=== PATIENT | female | born 1985 | race Caucasian/White ===

== ENCOUNTER 2018-03-13 13:19 | Inpatient (IN) | payer OTHER ==
[~2018-03-13] VITALS: Ht 162.6 cm; Wt 84.8 kg
[2018-03-13] VITALS (10 sets, daily range): BP systolic 116–164; BP diastolic 67–111
[2018-03-13] MEDS ORDERED: SEROQUEL 25 MG25 M1 PO (13:31)
[2018-03-13] MEDS ORDERED: QUETIAPINE FUM100 MG PO (13:32)
[2018-03-13] MEDS ORDERED: XANAX 0.25 MG0.25 MG PO (13:32)
[2018-03-13] MEDS ORDERED: HYDROCHLOROTH12.5 M1 PO (13:33)
[2018-03-13] MEDS ORDERED: REMERON15 MG PO (13:33)
[2018-03-13] MEDS ORDERED: LISINOPRIL10 MG PO (13:33)
[2018-03-13] MEDS ORDERED: DEXAMETHASONE1 MG PO (13:34)
[2018-03-13] MEDS ORDERED: NEURONTIN600 MG PO (13:35)
[2018-03-13] MEDS ORDERED: VITAMIN D250000 UNIT PO (13:35)
[2018-03-13] MEDS ORDERED: TOPAMAX 100 MG100 MG PO (13:35)
[2018-03-13] MEDS ORDERED: JOLIVETTE0.35 MG PO (13:36)
[2018-03-13 14:39] LABS: CALCIUM 8.6 mg/dL (8.5-10.1); CREATININE 1.2 mg/dL (0.6-1.3); POTASSIUM 4.6 mmol/L (3.5-5.1)
[2018-03-13 14:44] LABS: ALBUMIN 3.5 g/dL (3.4-5.0); TOTAL BILIRUBIN 0.8 mg/dL (<0.1-1.0)
[2018-03-13 15:11] LABS: URINE BLOOD 3+ (Negative); URINE CLARITY CLEAR; URINE COLOR YELLOW; URINE GLUCOSE-RANDOM 2+ (Negative); URINE LEUKOCYTES-REFLEX NEGATIVE (Negative); URINE NITRITE-REFLEX NEGATIVE (Negative); URINE PROTEIN 3+ (Negative); URINE SPECIFIC GRAVITY >= 1.030 (1.005-1.030); URINE UROBILINOGEN 0.2 E.U./dl (0.2-1.0)
[2018-03-13 15:16] LABS: URINE BILIRUBIN 1+ (Negative); URINE KETONES 3+ (Negative)
[2018-03-13 15:17] LABS: ICTOTEST (BILI CONFIRMATORY) Negative (Negative)
[2018-03-13 15:23] LABS: CLUMPED PLTS OCCASIONAL; MACROCYTES 1+; PLATELET ESTIMATE ADEQUATE
[2018-03-13 15:26] LABS: FINE GRANULAR CASTS 4-10 Moderate /LPF (None Seen); HYALINE CASTS >10 Many /LPF (None Seen)
[2018-03-13 15:27] LABS: CRYSTALS None Seen /LPF (None Seen); MUCUS 4-6 Moderate strn/LPF (None Seen); SQUAMOUS >10 Many /LPF (0-3)
[2018-03-13 15:28] LABS: BACTERIA-REFLEX 1-9 Few /HPF (None Seen); URINE WBC-REFLEX 0-5 Rare /HPF (0-5)
[2018-03-13 16:23] LABS: BE -21.3 mmol/L (-2 to +3); PCO2 VENOUS 20.7 mmHg (41.0-51.0)
[2018-03-13 16:25] LABS: HCO3 6.3 mmol/L (22.0-26.0)
[2018-03-13 16:31] LABS: CALCIUM 7.5 mg/dL (8.5-10.1); POTASSIUM 4.5 mmol/L (3.5-5.1)
[2018-03-13 16:41] LABS: HEMATOCRIT 55.1 % (37.0-47.0); HEMOGLOBIN 17.6 gm/dL (12.0-15.0); MCH 32.2 pg (26.0-34.0); MCV 100.6 fL (80.0-100.0); MPV 9.9 fl. (7.2-11.1); NUCLEATED RBCS 0 /100WBC; PLATELET COUNT* 300 thou/uL (150-400); RBC 5.48 mil/uL (4.20-5.00); RDW-CV 13.6 % (10.5-14.5); WBC 13.7 thou/uL (4.0-11.0)
[2018-03-13 16:46] LABS: ABSOLUTE EOSINOPHILS 0.1 thou/uL (0.0-0.7); ABSOLUTE LYMPHOCYTES 1.2 thou/uL (0.8-5.3); ABSOLUTE MONOCYTES 0.5 thou/uL (0.0-1.2); ABSOLUTE NEUTROPHILS 11.8 thou/uL (1.6-8.1)
--- NOTE | 2018-03-13 18:03 | NUR ---
PATIENT ARRIVED TO ICU VIA CART FROM ER. PATIENT PLACED ON INSULIN GTT PER DKA PROTOCOL. DIABETIC EDUCATION INITIATED. PATIENT REPORTS NOT FEELING WELL. PATIENT NAUSEATED, ZOFRAN PROVIDED PER JAN. MANAGER FARM IN PLACE, SINUS TACHYCARDIA NOTED. ADMISSION HX AND ASSESSMENT COMPLETED. BEDSIDE REPORT TO BE GIVEN TO ONCOMING SHIFT.
[2018-03-13 20:37] LABS: ALBUMIN 3.2 g/dL (3.4-5.0); CALCIUM 7.7 mg/dL (8.5-10.1); CREATININE 0.9 mg/dL (0.6-1.3); MAGNESIUM 1.8 mg/dL (1.8-2.4); PHOSPHORUS* 0.9 mg/dL (2.5-4.9)
[2018-03-13 20:38] LABS: POTASSIUM 3.2 mmol/L (3.5-5.1)
[2018-03-14] VITALS (18 sets, daily range): BP systolic 99–139; BP diastolic 56–85
[2018-03-14 00:35] LABS: CALCIUM 7.9 mg/dL (8.5-10.1); CREATININE 0.9 mg/dL (0.6-1.3); MAGNESIUM 1.7 mg/dL (1.8-2.4); POTASSIUM 3.5 mmol/L (3.5-5.1)
[2018-03-14 04:20] LABS: ABSOLUTE EOSINOPHILS 0.1 thou/uL (0.0-0.7); ABSOLUTE LYMPHOCYTES 1.5 thou/uL (0.8-5.3); ABSOLUTE MONOCYTES 0.9 thou/uL (0.0-1.2); ABSOLUTE NEUTROPHILS 7.3 thou/uL (1.6-8.1); BASOPHILS 0.3 %; EOSINOPHILS 0.7 %; HEMATOCRIT 41.7 % (37.0-47.0); LYMPHOCYTES 15.4 %; MCH 32.4 pg (26.0-34.0); MONOCYTES 9.3 %; MPV 9.2 fl. (7.2-11.1); NUCLEATED RBCS 0 /100WBC; PLATELET COUNT* 234 thou/uL (150-400); POLYS 74.3 %; RBC 4.38 mil/uL (4.20-5.00); RDW-CV 13.4 % (10.5-14.5); WBC 9.8 thou/uL (4.0-11.0)
[2018-03-14 04:34] LABS: CREATININE 0.9 mg/dL (0.6-1.3); POTASSIUM 3.6 mmol/L (3.5-5.1)
[2018-03-14 04:39] LABS: HEMOGLOBIN 14.2 gm/dL (12.0-15.0); MCV 95.3 fL (80.0-100.0)
--- NOTE | 2018-03-14 06:53 | NUR ---
PROGRESSING TOWARD GOALS. INSULIN GTT INFUSING, IVF, AND ELECTROLYTE REPLACEMENTS INFUSING PER DKA PROTOCOL. PT C/O NAUSEA X1, PRN ZOFRAN GIVEN ORDERED WITH RELIEF OF SYMPTOMS. ASSISTED TO BSC X1, STEADY ON FEET. JV BASEBALL COACH TRACING SINUS RHYTHM. O2 SAT REMAINS >95% ON RA. CALL LIGHT WITHIN REACH.
--- NOTE | 2018-03-14 08:02 | NUR ---
ASSUMED CARE OF PATIENT AFTER RECEIVING BEDSIDE REPORT. ASSESSMENT COMPLETED, VSS. PATIENT DENIES COMPLAINTS AND CONCERNS AT THIS TIME. PATIENT REPORTS SORENESS AT THE SITE OF THE CENTRAL LINE. PATIENT REPORTS FEELING MUCH BETTER TODAY. WILL CONVERT TO SQ INSULIN TODAY. PATIENT DOWNGRADED TO MED/SURG. DISHWASHING MACHINE OPERATOR IN PLACE, SINUS RHYTHM NOTED. BED ALARM ON. CALL LIGHT WITHIN REACH, USE REINFORCED. WILL CONTINUE TO MONITOR.
--- NOTE | 2018-03-14 10:22 | NUR ---
Nutrition: Per ICU rounds, pt is a new onset DM. Admitted with DKA. She is eating well. Will go up to M/S today. RD will educate on DM diet once pt is out of ICU. Follow up tomorrow, 03/15/18.
[2018-03-14 11:07] LABS: CALCIUM 7.7 mg/dL (8.5-10.1); CREATININE 0.8 mg/dL (0.6-1.3); MAGNESIUM 2.4 mg/dL (1.8-2.4); POTASSIUM 3.7 mmol/L (3.5-5.1)
--- NOTE | 2018-03-14 11:30 | NUR ---
SPOKE WITH PT, SHE SAID SHE STILL ISN'T FEELING VERY GOOD TODAY. PT ADMITTED YESTERDAY WITH DKA, NEWLY DIAGNOSED DIABETES. PT DOES NOT HAVE A PCP BUT SHE KNOWS THAT SHE WILL NEED TO GET ONE. NURSING TO BEING DIABETIC TEACHING WITH HER. PT LIVES AT HOME WITH HER , IS CURRENTLY UNEMPLOYED. 'IT'S A GOOD THING THAT MY INSURANCE IS THRU MY ' WORK.' DISCUSSED ROLE OF CASE MGT, WILL CONTINUE TO FOLLOW.
--- NOTE | 2018-03-14 17:08 | NUR ---
ASSUMED CARES OF PT FROM ICU AT 1544. REPORT RECEIVED AT 1535. PT ARRIVED VIA W/C WITH NURSING STAFF. PT A&O X4, VSS ON RA, PT LAYING IN BED, BED IN LOW LOCKED POSITION. PT EDUCATED ON ROOM AND TO CALL NURSES FOR HELP TO WALK TO BATHROOM. ASSESSMENTS REVIEWED BY ICU AND AGREED WITH. AFEBRILE, PERRLA. PT REPORT SOME DISCOMFORT/TIGHTNESS AROUND PICC LINE SITE. NON TENDER TO PALPATE. SKIN INTACT. HOURLY ROUNDS AND ACCU CHECKS TO CONTINUE. PT PROGRESSING TOWARDS GOAL.
--- NOTE | 2018-03-14 20:26 | NUR ---
BEDSIDE REPORT TO PERINATAL COORDINATOR FOR CONTINUED CARES. PT IN BED, BED IN LOW LOCKED POSITION. PT REMAINS STABLE, VSS ON RA. IV IN RIGHT TRIPLE LUMEN IJ PATENT WITH FLUIDS INFUSING, TOLERATED. BLOOD GLUCOSE REQUESTED TO INCREASE FROM MOD. SLIDING SCALE TO HIGH SLIDING SCALE R/T SUGARS OVER 300. PT PROGRESSING TOWARDS GOAL. HOURLY ROUNDING AND ACCU CHECKS COMPLETED.
[2018-03-15 00:18] VITALS: BP 107/79
[2018-03-15 04:29] LABS: ABSOLUTE EOSINOPHILS 0.1 thou/uL (0.0-0.7); ABSOLUTE LYMPHOCYTES 1.1 thou/uL (0.8-5.3); ABSOLUTE MONOCYTES 0.5 thou/uL (0.0-1.2); ABSOLUTE NEUTROPHILS 3.9 thou/uL (1.6-8.1); BASOPHILS 0.6 %; EOSINOPHILS 1.5 %; HEMATOCRIT 37.9 % (37.0-47.0); MCH 32.6 pg (26.0-34.0); MCHC 34.4 g/dL (28.0-37.0); MCV 94.7 fL (80.0-100.0); MONOCYTES 8.1 %; MPV 9.2 fl. (7.2-11.1); NUCLEATED RBCS 0 /100WBC; POLYS 69.8 %; RDW-CV 13.3 % (10.5-14.5); WBC 5.6 thou/uL (4.0-11.0)
[2018-03-15 04:45] LABS: PLATELET COUNT* 140 thou/uL (150-400)
[2018-03-15 04:47] LABS: ALBUMIN 2.6 g/dL (3.4-5.0); ALKALINE PHOSPHATASE 66 U/L (46-116); ANION GAP 15 mmol/L (7-16); BUN 5 mg/dL (7-18); CHLORIDE 103 mmol/L (98-107); CO2 21 mmol/L (21-32); CREATININE 0.6 mg/dL (0.6-1.3); GLUCOSE 196 mg/dL (70-99); PHOSPHORUS* 2.1 mg/dL (2.5-4.9); SGOT 12 U/L (15-37); SGPT 17 U/L (30-65); SODIUM 139 mmol/L (136-145); TOTAL BILIRUBIN 0.6 mg/dL (<0.1-1.0); TOTAL PROTEIN 5.7 g/dL (6.4-8.2)
[2018-03-15 04:58] LABS: POTASSIUM 2.6 mmol/L (3.5-5.1)
--- NOTE | 2018-03-15 05:31 | NUR ---
CRITICAL POTASSIUM REPORTED TO THIS NURSE BY ELLIE IN LAB ALONG WITH DELTA CHANGE IN PLATLETS. LABS POSSIBLY DILUTED, WILL REDRAW. IF STILL CRITICAL, WILL NOTIFY PHYSICIAN.
--- NOTE | 2018-03-15 05:34 | NUR ---
PT SLEPT MOST OF SHIFT. ASSESSMENT DOCUMENTED. MEDS GIVEN PER E-MAR. IJ PATENT, FLUIDS INFUSING. PT UP TO BATHROOM. PT HAD ONE EPISODE OF NAUSEA, ZOFRAN GIVEN PER E-MAR. NO REPORTS OF PAIN. WILL CONTINUE WITH PLAN OF CARE.
[2018-03-15 05:58] LABS: HEMATOCRIT 37.9 % (37.0-47.0); MCH 32.6 pg (26.0-34.0); MCHC 34.2 g/dL (28.0-37.0); MCV 95.3 fL (80.0-100.0); MPV 9.2 fl. (7.2-11.1); RBC 3.98 mil/uL (4.20-5.00); RDW-CV 13.6 % (10.5-14.5); WBC 5.8 thou/uL (4.0-11.0)
[2018-03-15 06:06] LABS: CALCIUM 8.1 mg/dL (8.5-10.1); CREATININE 0.6 mg/dL (0.6-1.3)
[2018-03-15 06:09] LABS: POTASSIUM 2.9 mmol/L (3.5-5.1)
[2018-03-15 07:45] VITALS: BP 144/96
[2018-03-15 08:09] LABS: GLYCOHEMOGLOBIN (HGB A1C) 13.9 % (4.8-5.6)
[2018-03-15 15:45] VITALS: BP 121/82
--- NOTE | 2018-03-15 17:22 | NUR ---
PATIENT A&OX4, ROOM AIR, IV RIGHT FOREARM, TRIPPLE LUMEN RIGHT IJ WITH FLUIDS INFUSSING. UP WITH ASSISTX1, STEADY GAIT. C/O HEADACHE, RELIEF WITH MEDICATION. NEW DIAGNOSIS OF DIABETES, BS RUNNING HIGH, ON HIGH DOSE INSULIN. NO OTHER CONCERNS AT THIS TIME. APPROPRIATE AND COOPORATIVE WITH CARE.
[2018-03-15 20:00] VITALS: BP 153/95
--- NOTE | 2018-03-16 05:09 | NUR ---
[facility] PATIENT CARE AT 1900. PATIENT ALERT AND ORIENTED TIMES FOUR. MINOR COMPLAINT OF HEADACHE THROUGH THENIGHT, ORAL MEDICATION GIVEN. IV PATENT TO FLUIDS AND BLOOD DRAWS. PATIENT ABLE TO AMBULATE INDEPENDENTLY TO THE RESTROOM. STATES THAT SHE "IS FEELING MUCH BETTER, BUT HAS NOT BEEN ABLE TO SLEEP WELL WHILE SHE HAS BEEN IN THE HOSPITAL." PHARMACIST APPRENTICE AND HOURLY ROUNDING COMPLETED DOCUMENTED.
[2018-03-16 05:49] LABS: URINE BILIRUBIN NEGATIVE (Negative); URINE BLOOD 2+ (Negative); URINE CLARITY CLEAR; URINE COLOR YELLOW; URINE GLUCOSE-RANDOM 3+ (Negative); URINE LEUKOCYTES NEGATIVE (Negative); URINE NITRITE NEGATIVE (Negative); URINE PROTEIN NEGATIVE (Negative); URINE UROBILINOGEN 0.2 E.U./dl (0.2-1.0)
[2018-03-16 05:51] LABS: URINE KETONES 3+ (Negative)
[2018-03-16 05:57] LABS: BACTERIA 1-9 Few /HPF (None Seen); CASTS None Seen /LPF (None Seen); CRYSTALS None Seen /LPF (None Seen); MUCUS 0-3 Light strn/LPF (None Seen); SQUAMOUS 0-3 Few /LPF (0-3); URINE RBC 3-10 Few /HPF (0-2); URINE WBC 0-5 Rare /HPF (0-5)
[2018-03-16 07:55] VITALS: BP 129/87
[2018-03-16] MEDS ORDERED: AUGMENTIN 875-1 EACH PO (12:04)
[2018-03-16] MEDS ORDERED: LANTUS100 UNIT/M SUBQ (12:05)
[2018-03-16] MEDS ORDERED: NOVOLOG100 UNIT/1 SUBQ (12:09)
[2018-03-16 12:14] VITALS: BP 129/87
--- NOTE | 2018-03-16 16:34 | NUR ---
PATIENT A&OX4, ROOM AIR, IV LEFT FOREARM SALINE LOCK, DISCONTINUED, CATHETER FULLY INTACT. UP AD ISMAEL, STEADY GAIT. NO C/O PAIN/N/V. PATIENT DISCHARGED TODAY. SPENT 45 MIN ON DISCHARGE. GAVE EXTENSIVE DIABETIC TEACHING, SEVERAL CARE NOTED PROVIDED. ALL CONCERNS AND QUESTIONS ANSWERED, VERBALIZES UNDERSTANDING. INFORMATION GIVEN TO FIND A PRIMARY PHYSICIAN, STATES SHE IS ALREADY IN THE PROCESS OF LOOKING. NEW PRESCRIPTIONS GIVEN. PATIENT LEFT UNIT AT 1620 VIA W/C WITH SPOUSE AND ALL BELONGINGS. NOTHING LEFT BEHIND. NO OTHER CONCERNS AT THIS TIME. APPROPRIATE AND COOPORATIVE WITH CARE.
== END 2018-03-16 16:25 | disposition home or self-care (01) | DRG 682 ==
LOC: M.ERS 13:19 → M.TBA-ER 15:06 → M.ICU 15:06 → M.3W 15:06 → M.ICU 16:28 → M.3W 03-14 15:44
PROVIDERS: Internal Medicine; Nurse Practitioner Family; ADMIT Internal Medicine
DX: N17.9 Acute kidney failure, unspecified (principal); E11.10 Type 2 diabetes mellitus with ketoacidosis without coma; R65.11 Systemic inflammatory response syndrome (SIRS) of non-infectious origin with acute organ dysfunction; E87.1 Hypo-osmolality and hyponatremia; E86.0 Dehydration; L40.50 Arthropathic psoriasis, unspecified; Z79.4 Long term (current) use of insulin; Z79.899 Other long term (current) drug therapy; Z83.3 Family history of diabetes mellitus